=== PATIENT | male | born 1980 | race Caucasian/White ===

== ENCOUNTER → 2017-03-05 | Outpatient (CLI) | payer OTHER ==
--- NOTE | 2017-03-06 08:05 | REP ---
RIGHT OS CALCIS SERIES: Two views. HISTORY: Right heel pain. FINDINGS: Axial and lateral views of the right calcaneus demonstrate plantar calcaneal spurring. No erosion is seen. Joint spaces are intact IMPRESSION: Plantar heel spur. Signed by Sammy Parker MD 03/06/2017 08:30 A
== END ==
LOC: M RAD 19:45
PROVIDERS: ATTEND Physician Assistant Medical
DX: M25.571 Pain in right ankle and joints of right foot (principal)

== ENCOUNTER → 2018-09-23 | Outpatient (REF) | payer OTHER | LOC: M LAB REF 19:31 | PROVIDERS: ATTEND Physician Assistant Medical | DX: J02.9 Acute pharyngitis, unspecified (principal) ==

== ENCOUNTER → 2019-10-22 | Outpatient (REF) | payer OTHER | LOC: M LAB REF 16:12 | PROVIDERS: ATTEND Physician Assistant | DX: J20.9 Acute bronchitis, unspecified (principal) ==

== ENCOUNTER → 2020-09-07 | Outpatient (CLI) | payer OTHER ==
--- NOTE | 2020-09-09 14:17 | SLEEPHOME ---
DATE: 09/07/2020 ORDERED BY: Inés Mcnamara NP Diagnostic home sleep testing was performed due to concern for the obstructive sleep apnea syndrome in this patient with a history of excessive somnolence and nonrestorative sleep. For testing, a nocturnal T3 respiratory monitoring device was used. Continuous record was made of pulse, oxygen saturation, air flow, chest and abdominal strain, and body position. Nine hours and 9 minutes of data were reviewed. There were 6 hours and 1 minutes marked as time in bed. During the interval marked time in bed, there were 81 respiratory events identified of 10 seconds in duration or greater for a respiratory event index of 13.4. The events were primarily obstructive, 12 mixed and 12 central apneas were seen. Baseline pulse rate was 75. Pulse rate ranged 38 to 102. Baseline saturation was 90%. Saturations fell to 77% and testing was performed in both the supine and nonsupine positions. IMPRESSION: Abnormal home sleep testing with repetitive respiratory events, oxygen desaturations to 77% and a respiratory event index of 13.4 is consistent with the obstructive sleep apnea syndrome. RECOMMENDATION: The patient should be referred for formal sleep evaluation. Roberto Lua MD
== END ==
LOC: M SLEEP HO 13:19
PROVIDERS: ATTEND Nurse Practitioner Family
DX: R06.83 Snoring (principal); R40.0 Somnolence; F17.210 Nicotine dependence, cigarettes, uncomplicated

== ENCOUNTER → 2021-02-09 | Outpatient (REF) | payer OTHER ==
[2021-02-09 17:17] LABS: FERRITIN 88 NG/ML (26-388); IRON (FE) 62 UG/DL (65-175); PERCENT SATURATION 15.7 % (19.7-50.0); TOTAL IRON BINDING CAPACITY 394 UG/DL (250-450)
[2021-02-09 17:36] LABS: HEPATITIS B SURFACE ANTIGEN NEGATIVE (NEGATIVE)
[2021-02-09 18:04] LABS: HEPATITIS C VIRUS ABY INDEX 0.1 INDEX (<0.8)
[2021-02-09 18:05] LABS: HEPATITIS B CORE ANTIBODY IGM NEGATIVE (NEGATIVE)
[2021-02-09 18:06] LABS: HEPATITIS A ANTIBODY IGM NEGATIVE (NEGATIVE)
== END ==
LOC: M LAB REF 16:36
PROVIDERS: ATTEND Internal Medicine
DX: R74.01 Elevation of levels of liver transaminase levels (principal)